=== PATIENT | male | born 1945 | race Caucasian/White ===

== ENCOUNTER 2018-03-04 09:23 | Emergency (ER) | payer MEDICARE ==
[~2018-03-04] VITALS: Ht 180.3 cm; Wt 93.4 kg
[~2018-03-04 09:23] MED LIST: ALBUTEROL0.09 MG/A2 IH; AMPICILLIN500 MG PO; Anusol Hc,Anuco25 MG PO; CIPROFLOXACIN500 MG PO; DARVOCET N 1001 TAB PO; KEFLEX500 MG PO; LEVOFLOXACIN500 MG PO; MEDROL DOSEPAK4 MG PO; PREDNISONE20 MG PO; PROTONIX40 MG PO; SPIRIVA18 MCG PO
[2018-03-04 09:26] VITALS: BP 122/86
[2018-03-04 10:28] LABS: ACT PARTIAL THROMBO TIME 26.8 SECONDS (20.8-31.5); INTERNATIONAL NORM RATIO 1.1 (2.0-3.5)
[2018-03-04 10:29] LABS: BASO # 0.3 10*3/uL (0.0-0.1); BASO % 3.2 % (0.0-1.0); EOS # 0.3 10*3/uL (0.0-0.4); EOS % 3.2 % (1.0-4.0); HEMATOCRIT 48.6 % (42.0-52.0); HEMOGLOBIN 16.2 g/dl (14.0-18.0); LYMPH # 1.3 10*3/uL (1.3-4.4); LYMPH % 16.6 % (27.0-41.0); MEAN CELL VOLUME 93.3 fl (80.0-94.0); MEAN CORPUSCULAR HGB 31.1 pg (27.0-31.0); MEAN CORPUSCULAR HGB CONC 33.3 g/dl (33.0-37.0); MEAN PLATELET VOLUME 10.6 fl (9.6-12.3); MONO # 0.5 10*3/uL (0.1-1.0); MONO % 6.1 % (3.0-9.0); NEUT # 5.5 10*3/uL (2.3-7.9); NEUT % 68.9 % (47.0-73.0); PLATELET COUNT AUTOMATED 417 10*3/uL (130-400); RED BLOOD COUNT 5.21 10*6/uL (4.50-5.90); RED CELL DISTRI WIDTH 18.8 % (0-14.5)
[2018-03-04 10:37] LABS: ALKALINE PHOSPHATASE 76 U/L (45-117); BUN 12 mg/dl (7-24); CHLORIDE 109 mmol/L (98-107); CREATININE 1.02 mg/dL (0.70-1.30); LIPASE 87 U/L (73-393); POTASSIUM 4.4 mmol/L (3.5-5.1); SGOT/AST 33 IU/L (3-35); SGPT/ALT 28 U/L (12-78); SODIUM 138 mmol/L (136-145); TOTAL PROTEIN 6.8 gm/dL (6.4-8.2)
[2018-03-04 10:39] LABS: TROPONIN I < 0.015 ng/ml (<0.045)
[2018-03-04 11:00] LABS: BILIRUBIN NEGATIVE (NEGATIVE); BLOOD NEGATIVE (NEGATIVE); CLARITY CLEAR (CLEAR); COLOR YELLOW (YELLOW); GLUCOSE NEGATIVE (NEGATIVE); KETONE NEGATIVE (NEGATIVE); LEUKO ESTERASE NEGATIVE (NEGATIVE); NITRITE NEGATIVE (NEGATIVE); PH 7.5 (5.0-9.0); UROBILINOGEN 0.2 E.U./dl (0.2-1.0)
[2018-03-04 11:18] LABS: BACTERIA 1+; EPITHELIAL CELLS 0-2; RBC 0-2 rbc/hpf (0-2); WBC 0-2 wbc/hpf (0-5)
== END 2018-03-04 11:54 | disposition left against medical advice (07) ==
LOC: ED 09:23
PROVIDERS: Emergency Medicine
DX: R55 Syncope and collapse (principal); R11.0 Nausea; R42 Dizziness and giddiness; R25.1 Tremor, unspecified; F17.200 Nicotine dependence, unspecified, uncomplicated; Z91.041 Radiographic dye allergy status; Z88.6 Allergy status to analgesic agent; Z79.899 Other long term (current) drug therapy

== ENCOUNTER 2019-02-03 09:25 | Emergency (ER) | payer MEDICARE ==
[~2019-02-03] VITALS: Ht 182.8 cm; Wt 103.0 kg
--- NOTE | ~2019-02-03 | EKG ---
[place], [place] ELECTROCARDIOGRAM REPORT NAME: ERNESTINE MIDDLETON UNIT #: [id number] ROOM: DOCTOR: EPIPHANY DRAFT REPORT BIRTHDATE: [birth year] [facility] Test Date: 2019-02-03 Test Time: 11:44:39 Pat Name: ERNESTINE MIDDLETON Department: Room: Gender: Adult Care Manager: : 1945 Requested By: MATHEUS LOPEZ Order Number: [id number] Reading MD: Measurements Intervals [place] Rate: 86 P: 54 DC: 144 QRS: 54 QRSD: 139 T: 33 QT: 403 QTc: 482 Interpretive Statements Sinus rhythm Right bundle branch block Minimal ST elevation, lateral leads No previous ECG available for comparison CM:EKGRPT:ELECTROCARDIOGRAM REPORT [id number] MATHEUS BERNARD DRAFT REPORT MATHEUS LOPEZ M.D.
--- NOTE | ~2019-02-03 | EKG ---
[place], [place] ELECTROCARDIOGRAM REPORT NAME: ERNESTINE MIDDLETON UNIT #: [id number] ROOM: DOCTOR: EPIPHANY DRAFT REPORT BIRTHDATE: [birth year] [facility] Test Date: 2019-02-03 Test Time: 09:25:54 Pat Name: ERNESTINE MIDDLETON Department: Room: Gender: Physician Office Nurse: : 1945 Requested By: MATHEUS LOPEZ Order Number: [id number] Reading MD: Ricco Stinson MD Measurements Intervals [place] Rate: 61 P: 70 PA: 180 QRS: -57 QRSD: 111 T: 43 QT: 393 QTc: 396 Interpretive Statements Sinus rhythm LAD, consider left anterior fascicular block Abnormal R-wave progression, early transition Borderline ST elevation, lateral leads Baseline wander in lead(s) V1 No previous ECG available for comparison Electronically Signed On 02-04-2019 9:40:38 PDT by Ricco Stinson MD CM:EKGRPT:ELECTROCARDIOGRAM REPORT 4 9 MATHEUS BERNARD DRAFT REPORT MATHEUS LOPEZ M.D.
[2019-02-03 09:34] VITALS: BP 131/86
[2019-02-03 09:43] LABS: HEMATOCRIT 50.3 % (42.0-52.0); HEMOGLOBIN 16.5 g/dl (14.0-18.0); MEAN CELL VOLUME 94.2 fl (80.0-94.0); MEAN CORPUSCULAR HGB 30.9 pg (27.0-31.0); MEAN CORPUSCULAR HGB CONC 32.8 g/dl (33.0-37.0); PLATELET COUNT AUTOMATED 388 10*3/uL (130-400); RED BLOOD COUNT 5.34 10*6/uL (4.50-5.90); RED CELL DISTRI WIDTH 19.8 % (0-14.5); WHITE BLOOD COUNT 8.5 10*3/uL (4.8-10.8)
[2019-02-03 09:53] LABS: ACT PARTIAL THROMBO TIME 26.7 SECONDS (20.8-31.5); INTERNATIONAL NORM RATIO 1.1 (2.0-3.5)
[2019-02-03 09:59] LABS: ALKALINE PHOSPHATASE 72 U/L (45-117); BUN 13 mg/dl (7-24); CHLORIDE 107 mmol/L (98-107); CREATININE 1.13 mg/dL (0.70-1.30); POTASSIUM 4.3 mmol/L (3.5-5.1); SGOT/AST 17 IU/L (3-35); SGPT/ALT 27 U/L (12-78); SODIUM 139 mmol/L (136-145); TOTAL PROTEIN 6.7 gm/dL (6.4-8.2)
[2019-02-03 10:00] LABS: TROPONIN I < 0.015 ng/ml (<0.045)
[2019-02-03 10:07] LABS: BASOPHILS 3 % (0-1); BURR CELLS FEW; TOTAL CELLS COUNTED 100 #CELLS
[2019-02-03 10:08] LABS: OVALOCYTES FEW; PLATELET SUFFICIENCY NORMAL (NORMAL)
== END 2019-02-03 11:31 | disposition left against medical advice (07) ==
LOC: ED 09:25
PROVIDERS: Emergency Medicine
DX: R55 Syncope and collapse (principal); R42 Dizziness and giddiness; R11.0 Nausea; F17.210 Nicotine dependence, cigarettes, uncomplicated; Z79.899 Other long term (current) drug therapy; Z91.041 Radiographic dye allergy status; Z88.6 Allergy status to analgesic agent

== ENCOUNTER 2023-02-28 05:13 | Emergency (ER) | payer MEDICARE ==
[~2023-02-28] VITALS: Wt 85.3 kg
[2023-02-28 05:31] VITALS: BP 142/77
[2023-02-28] MEDS ORDERED: BREZTRI AEROS10.7 GM INH (05:35)
[2023-02-28] MEDS ORDERED: PROCHLORPERAZIN10 MG PO (05:36)
[2023-02-28] MEDS ORDERED: TRAMADOL HCL50 MG PO (05:36)
[2023-02-28 06:46] LABS: HEMATOCRIT 48.6 % (42.0-52.0); MEAN CELL VOLUME 91.4 fl (80.0-94.0); MEAN CORPUSCULAR HGB 30.1 pg (27.0-31.0); MEAN CORPUSCULAR HGB CONC 32.9 g/dl (33.0-37.0); MEAN PLATELET VOLUME 9.9 fl (9.6-12.3); PLATELET COUNT AUTOMATED 468 10*3/uL (130-400); RED BLOOD COUNT 5.32 10*6/uL (4.50-5.90); RED CELL DISTRI WIDTH 19.6 % (0-14.5); WHITE BLOOD COUNT 13.3 10*3/uL (4.8-10.8)
[2023-02-28 06:51] LABS: MANUAL DIFF REFLEX YES
[2023-02-28 07:31] LABS: ALKALINE PHOSPHATASE 68 U/L (46-116); BUN 14 mg/dl (9-23); CHLORIDE 95 mmol/L (98-107); POTASSIUM 4.5 mmol/L (3.4-5.1); SGPT/ALT 55 U/L (10-49); TOTAL PROTEIN 6.5 gm/dL (6.0-8.0)
[2023-02-28 08:05] LABS: BASOPHILS 1 % (0-1); OVALOCYTES FEW; TOTAL CELLS COUNTED 100 #CELLS; VACUOLATION OF NEUTROPHILS MODERATE
[2023-02-28 08:06] LABS: PLATELET SUFFICIENCY HIGH (NORMAL)
== END 2023-02-28 09:10 | disposition home or self-care (01) ==
LOC: ED 05:13
PROVIDERS: Emergency Medicine
DX: J18.9 Pneumonia, unspecified organism (principal); E87.1 Hypo-osmolality and hyponatremia; F41.9 Anxiety disorder, unspecified; Z88.6 Allergy status to analgesic agent; Z88.5 Allergy status to narcotic agent; Z98.890 Other specified postprocedural states; Z98.42 Cataract extraction status, left eye

== ENCOUNTER 2024-08-16 11:10 | Emergency (ER) | payer MEDICARE ==
[~2024-08-16] VITALS: Ht 177.8 cm; Wt 78.0 kg
[~2024-08-16 11:10] MED LIST changes: +BREZTRI AEROS10.7 GM INH; +PROCHLORPERAZIN10 MG PO; +TRAMADOL HCL50 MG PO
[2024-08-16 11:23] VITALS: BP 93/60
== END 2024-08-16 12:11 | disposition left against medical advice (07) ==
LOC: ED 11:10
DX: R06.02 Shortness of breath (principal); R00.0 Tachycardia, unspecified; Z53.29 Procedure and treatment not carried out because of patient's decision for other reasons; Z86.718 Personal history of other venous thrombosis and embolism; Z88.6 Allergy status to analgesic agent; Z79.899 Other long term (current) drug therapy; Z85.118 Personal history of other malignant neoplasm of bronchus and lung; Z98.890 Other specified postprocedural states

== ENCOUNTER 2024-09-01 18:51 | Inpatient (IN) | payer OTHER ==
[~2024-09-01] VITALS: Ht 188 cm; Wt 84.5 kg
[~2024-09-01 18:51] MED LIST changes: +HYOSCYAMINE0.125 M1; +LORAZEPAM0.5 M1 PO; +MORPHINE S100 MG/5 M PO
[2024-09-01] MEDS ORDERED: MORPHINE Sulfate 50 MG in SODIUM CHLORIDE 0.9% 45 ML IV SCH (18:55)
[2024-09-01] MEDS ORDERED: LORazepam 2 MG/ML VIAL IV PRN (19:00)
[2024-09-01] MEDS ORDERED: MORPHINE Sulfate 5 MG IV PRN (19:00)
[2024-09-01] MEDS ORDERED: ATROPINE SULFATE 1% 2 ML BOTTLE SL PRN (19:00)
[2024-09-01] MEDS ORDERED: MORPHINE Sulfate 2 MG/ML SYR IV PRN (19:05)
[2024-09-01] MEDS ORDERED: SODIUM CHLORIDE 0.9% 500 ML IV ONE (19:25)
[2024-09-01 20:00] VITALS: BP 91/66
[2024-09-02] VITALS: BP 88/54
[2024-09-02 08:00] VITALS: BP 82/47
[2024-09-02 12:00] VITALS: BP 71/38
[2024-09-02] MEDS ORDERED: SODIUM CHLORIDE 0.9% 500 ML IV SCH (12:45)
== END 2024-09-02 17:08 | DRG 181 ==
LOC: 4E 18:51
PROVIDERS: ADMIT Family Medicine; ATTEND Family Medicine
DX: C34.90 Malignant neoplasm of unspecified part of unspecified bronchus or lung (principal); E87.1 Hypo-osmolality and hyponatremia; D53.1 Other megaloblastic anemias, not elsewhere classified; D69.6 Thrombocytopenia, unspecified; F17.200 Nicotine dependence, unspecified, uncomplicated; I48.91 Unspecified atrial fibrillation; Z66 Do not resuscitate; Z51.5 Encounter for palliative care; Z68.22 Body mass index [BMI] 22.0-22.9, adult